=== PATIENT | male | born 2005 | race Two or more races ===

== ENCOUNTER 2024-10-17 16:47 | Emergency (ER) | payer MEDICAID ==
[~2024-10-17] VITALS: Ht 170.2 cm; Wt 65.8 kg
[2024-10-17 16:52] VITALS: TEMP 98.4
[2024-10-17] MEDS ORDERED: MORPHINE SULFATE INJ 4 MG/ML DISP.SYRIN ONE (17:06)
[2024-10-17] MEDS ORDERED: ONDANSETRON HCL/PF 4 MG/2 ML VIAL ONE (17:06)
[2024-10-17] MEDS: MORPHINE SULFATE INJ 2 MG/ML DISP.SYRIN IV ONE (17:13)
[2024-10-17] MEDS: ONDANSETRON HCL/PF - ER 4 MG/2 ML VIAL IV ONE (17:13)
[2024-10-17] MEDS ORDERED: KETOROLAC TROMETHAMINE INJ 30 MG/ML VIAL ONE (17:41)
[2024-10-17] MEDS: KETOROLAC TROMETHAMINE INJ 30 MG/ML VIAL IV ONE (17:42)
[2024-10-17] MEDS ORDERED: ACET325C7 PO (18:26)
[2024-10-17] MEDS ORDERED: IBUP-76 PO (18:26)
[2024-10-17 19:06] VITALS: BP 125/70; O2SAT 97
== END 2024-10-17 18:49 | disposition home or self-care (01) ==
LOC: ER 16:51
DX: S43.085A Other dislocation of left shoulder joint, initial encounter (principal); F17.200 Nicotine dependence, unspecified, uncomplicated; Z60.2 Problems related to living alone; W17.89XA Other fall from one level to another, initial encounter; Y93.89 Activity, other specified; Y92.89 Other specified places as the place of occurrence of the external cause; Y99.8 Other external cause status
CPT/HCPCS: 99284; 23650; 96374; 96375; 73030 ×2; J1885; J2270; J2405 ×2